=== PATIENT | female | born 1940 | race Caucasian/White ===

== ENCOUNTER 2016-05-05 16:20 | Emergency (ER) | payer MEDICARE, OTHER ==
[~2016-05-05] VITALS: Ht 157.5 cm; Wt 96.2 kg
[~2016-05-05 16:20] MED LIST: ANTIVERT25 MG PO; ASPIRIN81 MG PO; BACTRIM DS TAB1 EACH PO; KLOR-CON M2020 MEQ PO; LASIX20 MG PO; NYSTATIN1 EAC1 TOP; TYLENOL325 MG PO
[2016-05-06] MEDS ORDERED: ZAROXOLYN2.5 MG PO (11:18)
[2016-05-06] MEDS ORDERED: DEMADEX20 MG PO (11:19)
[2016-05-06] MEDS ORDERED: KLOR-CON M2020 MEQ PO (11:20)
[2016-05-06] MEDS ORDERED: COREG6.25 MG PO (11:21)
[2016-05-06] MEDS ORDERED: ASPIRIN81 MG PO (11:22)
== END 2016-05-05 18:40 | disposition short-term general hospital (02) ==
LOC: ER 16:20
DX: K52.9 Noninfective gastroenteritis and colitis, unspecified (principal); R79.89 Other specified abnormal findings of blood chemistry; N28.9 Disorder of kidney and ureter, unspecified
CPT/HCPCS: J2405

== ENCOUNTER 2016-05-06 10:18 | Inpatient (IN) | payer MEDICARE, OTHER ==
[~2016-05-06] VITALS: Ht 152.4 cm; Wt 100.3 kg
[2016-05-06] MEDS ORDERED: ZAROXOLYN2.5 MG PO (11:18)
[2016-05-06] MEDS ORDERED: DEMADEX20 MG PO (11:19)
[2016-05-06] MEDS ORDERED: KLOR-CON M2020 MEQ PO (11:20)
[2016-05-06] MEDS ORDERED: COREG6.25 MG PO (11:21)
[2016-05-06] MEDS ORDERED: ASPIRIN81 MG PO (11:22)
== END 2016-05-11 09:30 | disposition short-term general hospital (02) | DRG 871 ==
LOC: ER 10:18 → IP 13:00
PROVIDERS: ADMIT Family Medicine
PROC: 0T9B70Z Drainage of Bladder with Drainage Device, Via Natural or Artificial Opening (ICD-10-PCS; principal; 2016-05-06)
DX: A41.2 Sepsis due to unspecified staphylococcus (principal); J18.9 Pneumonia, unspecified organism; N39.0 Urinary tract infection, site not specified; N17.9 Acute kidney failure, unspecified; I50.9 Heart failure, unspecified; N18.9 Chronic kidney disease, unspecified; Z66 Do not resuscitate; Z99.81 Dependence on supplemental oxygen; E03.9 Hypothyroidism, unspecified; D64.9 Anemia, unspecified; E87.6 Hypokalemia; K80.20 Calculus of gallbladder without cholecystitis without obstruction; B96.20 Unspecified Escherichia coli [E. coli] as the cause of diseases classified elsewhere; R65.20 Severe sepsis without septic shock; Z74.01 Bed confinement status
CPT/HCPCS: A9150; J0456; J0696; J1940; J2270

== ENCOUNTER 2016-05-11 09:30 | Inpatient (IN) | payer MEDICARE, OTHER ==
[~2016-05-11 09:30] MED LIST changes: +COREG6.25 MG PO; +DEMADEX20 MG PO; +ZAROXOLYN2.5 MG PO
[2016-05-18] MEDS ORDERED: LASIX40 MG PO (09:19)
[2016-05-18] MEDS ORDERED: MUCINEX600 MG PO (10:51)
== END 2016-05-18 11:10 | disposition home health service (06) | DRG 871 ==
LOC: SB 09:30
PROVIDERS: ADMIT Family Medicine
PROC: 3E0F7GC Introduction of Other Therapeutic Substance into Respiratory Tract, Via Natural or Artificial Opening (ICD-10-PCS; principal; 2016-05-11)
DX: A41.9 Sepsis, unspecified organism (principal); J18.9 Pneumonia, unspecified organism; N17.9 Acute kidney failure, unspecified; N39.0 Urinary tract infection, site not specified; R65.20 Severe sepsis without septic shock; B96.89 Other specified bacterial agents as the cause of diseases classified elsewhere; I50.9 Heart failure, unspecified; I25.10 Atherosclerotic heart disease of native coronary artery without angina pectoris; N18.9 Chronic kidney disease, unspecified; Z66 Do not resuscitate; E87.6 Hypokalemia

== ENCOUNTER 2016-05-22 20:15 | Emergency (ER) | payer MEDICARE, OTHER ==
[~2016-05-22] VITALS: Ht 154.9 cm; Wt 101.6 kg
[~2016-05-22 20:15] MED LIST changes: +LASIX40 MG PO; +MUCINEX600 MG PO
== END 2016-05-22 22:30 | disposition short-term general hospital (02) ==
LOC: ER 20:15
PROC: 2Y41X5Z Packing of Nasal Region using Packing Material (ICD-10-PCS; principal; 2016-05-22)
DX: R04.0 Epistaxis (principal)
CPT/HCPCS: A9150

== ENCOUNTER 2016-06-01 05:36 | Emergency (ER) | payer MEDICARE, OTHER ==
[~2016-06-01] VITALS: Ht 154.9 cm; Wt 103.4 kg
[2016-06-01] MEDS ORDERED: COREG3.125 MG PO (07:00)
[2016-06-01] MEDS ORDERED: ASPIRIN325 MG PO (07:01)
[2016-06-01] MEDS ORDERED: FERROUS SULFAT325 M1 PO (07:01)
[2016-06-01] MEDS ORDERED: LASIX40 MG PO (07:05)
== END 2016-06-01 13:32 | disposition short-term general hospital (02) ==
LOC: ER 05:36
DX: I50.9 Heart failure, unspecified (principal); I95.9 Hypotension, unspecified; D64.9 Anemia, unspecified; N18.9 Chronic kidney disease, unspecified; I25.10 Atherosclerotic heart disease of native coronary artery without angina pectoris; I27.2 Other secondary pulmonary hypertension; E66.9 Obesity, unspecified

== ENCOUNTER 2016-06-08 09:30 | Inpatient (IN) | payer MEDICARE, OTHER ==
[~2016-06-08] VITALS: Ht 154.9 cm; Wt 2.3 kg
[~2016-06-08 09:30] MED LIST changes: +ASPIRIN325 MG PO; +COREG3.125 MG PO; +FERROUS SULFAT325 M1 PO
[2016-06-08] MEDS ORDERED: LIPITOR40 MG PO (11:22)
[2016-06-08] MEDS ORDERED: SYNTHROID50 MCG PO (13:45)
[2016-06-08] MEDS ORDERED: VITAMIN D-32000 UNI1 PO (13:45)
[2016-06-08] MEDS ORDERED: ZOFRAN ODT4 MG PO (13:46)
[2016-06-08] MEDS ORDERED: TORSEMIDE20 MG PO (13:48)
[2016-06-15] MEDS ORDERED: NYSTOP15 GM TOP (10:18)
[2016-06-15] MEDS ORDERED: ANTI-ITCH28 G1 TOP (10:27)
[2016-06-15] MEDS ORDERED: HYDROCREAM28.4 GM TOP (10:48)
== END 2016-06-15 10:40 | disposition home health service (06) | DRG 292 ==
LOC: SB 09:30
PROVIDERS: ADMIT Family Medicine
PROC: 3E0F7GC Introduction of Other Therapeutic Substance into Respiratory Tract, Via Natural or Artificial Opening (ICD-10-PCS; principal; 2016-06-08)
DX: I50.33 Acute on chronic diastolic (congestive) heart failure (principal); I42.9 Cardiomyopathy, unspecified; I25.10 Atherosclerotic heart disease of native coronary artery without angina pectoris; N18.9 Chronic kidney disease, unspecified; D63.1 Anemia in chronic kidney disease; I27.2 Other secondary pulmonary hypertension; E03.9 Hypothyroidism, unspecified; D46.9 Myelodysplastic syndrome, unspecified
CPT/HCPCS: A9150

== ENCOUNTER 2016-06-29 12:10 | Inpatient (IN) | payer MEDICARE, OTHER ==
[~2016-06-29] VITALS: Ht 157.5 cm; Wt 106.6 kg
[~2016-06-29 12:10] MED LIST changes: +ANTI-ITCH28 G1 TOP; +HYDROCREAM28.4 GM TOP; +LIPITOR40 MG PO; +NYSTOP15 GM TOP; +SYNTHROID50 MCG PO; +TORSEMIDE20 MG PO; +VITAMIN D-32000 UNI1 PO; +ZOFRAN ODT4 MG PO
[2016-06-29] MEDS ORDERED: MUCINEX600 MG PO (12:49)
== END 2016-07-03 11:30 | disposition short-term general hospital (02) | DRG 292 ==
LOC: IP 12:10 → UNDOADMIN 12:19 → IP 07-03 11:30
PROVIDERS: ADMIT Family Medicine
PROC: 3E0F7GC Introduction of Other Therapeutic Substance into Respiratory Tract, Via Natural or Artificial Opening (ICD-10-PCS; 2016-06-29)
PROC: 30233N1 Transfusion of Nonautologous Red Blood Cells into Peripheral Vein, Percutaneous Approach (ICD-10-PCS; principal; 2016-07-01)
DX: I50.9 Heart failure, unspecified (principal); N39.0 Urinary tract infection, site not specified; N18.9 Chronic kidney disease, unspecified; B96.89 Other specified bacterial agents as the cause of diseases classified elsewhere; Z99.81 Dependence on supplemental oxygen; R09.02 Hypoxemia; I27.2 Other secondary pulmonary hypertension; R79.89 Other specified abnormal findings of blood chemistry; D46.9 Myelodysplastic syndrome, unspecified; Z66 Do not resuscitate; I25.10 Atherosclerotic heart disease of native coronary artery without angina pectoris; D63.1 Anemia in chronic kidney disease
CPT/HCPCS: A9150; J1940; J8499